=== PATIENT | female | born 1985 | race Two or more races ===

== ENCOUNTER 2017-10-03 00:30 | Inpatient (IN) | payer OTHER ==
[2017-10-02 13:41] LABS: BASOPHILS % (AUTO) 0.6 % (0.0-2.0); EOSINOPHILS % (AUTO) 0.2 % (0.0-4.0); HEMATOCRIT 41.6 % (36-48); HEMOGLOBIN 13.9 g/dL (12.0-16.0); LYMPHOCYTES # (AUTO) 1.3 K/uL (2.5-16.5); LYMPHOCYTES % (AUTO) 17.8 % (20.5-51.1); MEAN CORPUSCULAR HEMOGLOBIN 26 pg (27-31); MEAN CORPUSCULAR HGB CONC 33 g/dL (33-37); MEAN CORPUSCULAR VOLUME 78.4 fL (80-94); MONOCYTES # (AUTO) 0.4 K/uL (0.8-1.0); MONOCYTES % (AUTO) 5.3 % (1.7-9.3); NEUTROPHILS # (AUTO) 5.7 K/uL (1.8-7.7); NEUTROPHILS % (AUTO) 76.1 % (42.2-75.2); PLATELET COUNT (AUTO) 222 K/uL (140-450); RED CELL DISTRIBUTION WIDTH 13.6 % (11.6-13.7); WHITE BLOOD COUNT (AUTO) 7.5 K/uL (4.8-10.8)
[~2017-10-03] VITALS: Ht 170.2 cm; Wt 77.1 kg
[2017-10-03] MEDS ORDERED: LACTATED RINGERS 1,000 ML IV SCH (06:28)
[2017-10-03] MEDS ORDERED: METHYLERGONOVINE 0.2 MG/ML AMP IM PRN ×2 (06:30→07:50)
[2017-10-03] MEDS ORDERED: oxyCODONE/APAP 5/325 MG 1 TAB TAB PO PRN (06:30)
[2017-10-03] MEDS ORDERED: TRIMETHOBENZAMIDE 200 MG/2 ML SYR IM PRN ×2 (06:30→07:50)
[2017-10-03] MEDS ORDERED: MEASLES, MUMPS, AND RUBELLA 1 VIAL SQVAC PRN ×2 (06:30→07:50)
[2017-10-03] MEDS ORDERED: HYDROcodone/APAP 5/325 MG 1 TAB TAB PO PRN (06:30)
[2017-10-03] MEDS ORDERED: IBUPROFEN 800 MG TAB PO PRN (06:30)
[2017-10-03] MEDS ORDERED: TEMAZEPAM 15 MG CAP PO PRN (06:30)
[2017-10-03 06:46] VITALS: BP 106/75
[2017-10-03] MEDS ORDERED: diphenhydrAMINE 50 MG/ML VIAL ONE (07:36)
[2017-10-03] MEDS ORDERED: MIDAZOLAM 2 MG/2 ML VIAL ONE (07:42)
[2017-10-03] MEDS ORDERED: MORPHINE PRES FREE 10 MG/10 ML AMP IV ONE (07:42)
[2017-10-03] MEDS ORDERED: BUPIVACAINE-MPF 0.75% 10 ML VIAL INJ ONE (07:43)
[2017-10-03] MEDS ORDERED: OXYTOCIN 20 UNITS in LACTATED RINGERS 1,000 ML IV SCH ×2 (07:50→08:27)
[2017-10-03 07:53] LABS: BASOPHILS % (AUTO) 0.2 % (0.0-2.0); EOSINOPHILS % (AUTO) 0.4 % (0.0-4.0); HEMATOCRIT 40.9 % (36-48); HEMOGLOBIN 13.6 g/dL (12.0-16.0); LYMPHOCYTES # (AUTO) 1.6 K/uL (2.5-16.5); LYMPHOCYTES % (AUTO) 26.2 % (20.5-51.1); MEAN CORPUSCULAR HEMOGLOBIN 26 pg (27-31); MEAN CORPUSCULAR HGB CONC 33 g/dL (33-37); MEAN CORPUSCULAR VOLUME 78.3 fL (80-94); MONOCYTES # (AUTO) 0.4 K/uL (0.8-1.0); MONOCYTES % (AUTO) 6.3 % (1.7-9.3); NEUTROPHILS # (AUTO) 4.2 K/uL (1.8-7.7); NEUTROPHILS % (AUTO) 66.9 % (42.2-75.2); PLATELET COUNT (AUTO) 216 K/uL (140-450); RED BLOOD CELL COUNT(AUTO) 5.22 MIL/uL (4.20-5.40); RED CELL DISTRIBUTION WIDTH 13.8 % (11.6-13.7); WHITE BLOOD COUNT (AUTO) 6.3 K/uL (4.8-10.8)
[2017-10-03 08:06] LABS: ANION GAP 16.3 (8-16); CARBON DIOXIDE 21.4 mmol/L (21-32); CREATININE 0.6 mg/dL (0.6-1.3); POTASSIUM 3.7 mmol/L (3.5-5.1)
[2017-10-03 08:12] LABS: ALBUMIN 2.7 g/dL (3.4-5.0); TOTAL BILIRUBIN 0.4 mg/dL (0.0-1.0)
[2017-10-03] MEDS ORDERED: ONDANSETRON 4 MG/2 ML VIAL IVP PRN ×2 (08:30)
[2017-10-03] MEDS ORDERED: NALOXONE 0.4 MG/ML VIAL IVP PRN ×3 (08:30)
[2017-10-03] MEDS ORDERED: diphenhydrAMINE 50 MG/ML VIAL IVP PRN ×2 (08:30)
[2017-10-03] MEDS ORDERED: MEPERIDINE 25 MG/ML SYR IVP PRN (08:30)
[2017-10-03] MEDS ORDERED: HYDROmorphone PFS 2 MG/ML SYR IVP PRN (08:30)
[2017-10-03] MEDS ORDERED: NALBUPHINE 10 MG/ML AMP IVP PRN (08:30)
[2017-10-03] MEDS ORDERED: SIMETHICONE 80 MG TAB.CHEW PO SCH (09:00)
[2017-10-03] MEDS ORDERED: ONDANSETRON 4 MG/2 ML VIAL ONE (09:09)
[2017-10-03] MEDS: OXYTOCIN 20 UNITS in LACTATED RINGERS 1,000 ML IV SCH ×4 (09:27→19:56)
--- NOTE | 2017-10-03 11:34 | NUR ---
PATIENT HAS BEEN SCREENED AND CATEGORIZED LOW NUTRITION RISK. PATIENT WILL BE SEEN WITHIN 7 DAYS OF ADMISSION. 10/09/[address]
[2017-10-03] MEDS ORDERED: KETOROLAC 30 MG/ML VIAL IM/IVP SCH (12:00)
[2017-10-03 14:09] LABS: APPEARANCE,URINE CLEAR (CLEAR); BILIRUBIN,URINE NEGATIVE (NEGATIVE); BLOOD, URINE NEGATIVE (NEGATIVE); COLOR,URINE YELLOW (YELLOW); LEUKOCYTE ESTERASE ,URINE NEGATIVE (NEGATIVE); NITRITE, URINE NEGATIVE (NEGATIVE); UGLUCOSE NEGATIVE (NEGATIVE)
[2017-10-03] MEDS: DOCUSATE SOD/SENNA 50/8.6 MG 1 TAB PO SCH (21:00)
[2017-10-03] MEDS ORDERED: DOCUSATE SOD/SENNA 50/8.6 MG 1 TAB PO SCH (21:00)
[2017-10-04] MEDS ORDERED: IBUPROFEN 800 MG TAB PO PRN (02:00)
[2017-10-04] MEDS ORDERED: TEMAZEPAM 15 MG CAP PO PRN (02:00)
[2017-10-04] MEDS ORDERED: OXYTOCIN 20 UNITS/LR PREMIX 1,000 ML IV ONE (03:04)
[2017-10-04] MEDS: OXYTOCIN 20 UNITS in LACTATED RINGERS 1,000 ML IV SCH (03:13)
[2017-10-04 08:46] LABS: BASOPHILS % (AUTO) 0.5 % (0.0-2.0); EOSINOPHILS % (AUTO) 0.4 % (0.0-4.0); HEMATOCRIT 40.9 % (36-48); HEMOGLOBIN 13.6 g/dL (12.0-16.0); LYMPHOCYTES # (AUTO) 1.2 K/uL (2.5-16.5); LYMPHOCYTES % (AUTO) 13.9 % (20.5-51.1); MEAN CORPUSCULAR HEMOGLOBIN 26 pg (27-31); MEAN CORPUSCULAR HGB CONC 33 g/dL (33-37); MONOCYTES # (AUTO) 0.4 K/uL (0.8-1.0); MONOCYTES % (AUTO) 4.7 % (1.7-9.3); NEUTROPHILS # (AUTO) 7.2 K/uL (1.8-7.7); NEUTROPHILS % (AUTO) 80.5 % (42.2-75.2); PLATELET COUNT (AUTO) 191 K/uL (140-450); RED BLOOD CELL COUNT(AUTO) 5.25 MIL/uL (4.20-5.40); RED CELL DISTRIBUTION WIDTH 13.8 % (11.6-13.7); WHITE BLOOD COUNT (AUTO) 8.9 K/uL (4.8-10.8)
[2017-10-04 09:11] LABS: HEPATITIS B SURFACE ANTIGEN Negative (Negative)
[2017-10-04] MEDS: oxyCODONE/APAP 5/325 MG 1 TAB TAB PO PRN ×2 (10:22→16:11)
[2017-10-04] MEDS: SIMETHICONE 80 MG TAB.CHEW PO SCH ×3 (12:35→21:21)
[2017-10-04] MEDS: DOCUSATE SOD/SENNA 50/8.6 MG 1 TAB PO SCH (21:20)
[2017-10-04] MEDS: HYDROcodone/APAP 5/325 MG 1 TAB TAB PO PRN (21:21)
[2017-10-05] MEDS: SIMETHICONE 80 MG TAB.CHEW PO SCH ×2 (08:13→12:31)
[2017-10-05] MEDS: HYDROcodone/APAP 5/325 MG 1 TAB TAB PO PRN (08:13)
== END 2017-10-05 14:30 | disposition home or self-care (01) | DRG 766 ==
LOC: MLD 05:54 → MFCC 09:02
PROVIDERS: ADMIT Obstetrics & Gynecology; ATTEND Obstetrics & Gynecology
PROC: 3E0R3BZ Introduction of Anesthetic Agent into Spinal Canal, Percutaneous Approach (ICD-10-PCS; 2017-10-03)
PROC: 10D00Z1 Extraction of Products of Conception, Low, Open Approach (ICD-10-PCS; principal; 2017-10-03 07:30)
DX: O82 Encounter for cesarean delivery without indication (principal); Z28.21 Immunization not carried out because of patient refusal; Z3A.40 40 weeks gestation of pregnancy; Z37.0 Single live birth
CPT/HCPCS: 36415; 80053; 81003; 85025; 86592; 86762; 86850; 86886; 86900; 86901; 87081; 87340; J0690; J1200; J1885; J2250; J2270; J2405; J2590; J2790; J3490; J7060; J7120